=== PATIENT | female | born 1990 | race American Indian/Alaskan Native ===

== ENCOUNTER 2021-05-31 23:47 | Emergency (ER) | payer SELFPAY ==
[2021-06-01 02:21] VITALS: BP 143/80
--- NOTE | 2021-06-01 03:36 | XRay Report ---
RIGHT WRIST ONE VIEW INDICATION / CLINICAL INFORMATION: fell pain. COMPARISON: None available. FINDINGS: BONES / JOINT(S): No acute fracture or subluxation. No significant arthritis. SOFT TISSUES: No significant abnormality. ADDITIONAL FINDINGS: None. Signer Name: Bj Maza MD Signed: 06/01/2021 3:31 AM Workstation Name: [id number]
--- NOTE | 2021-06-01 04:59 | Emergency Department Report ---
ED General Adult HPI - General Chief complaint: Extremity Injury, Upper Stated complaint: WRIST PAIN Time Seen by Provider: 06/01/21 04:39 Source: patient Mode of arrival: Ambulatory Limitations: No Limitations - History of Present Illness Initial comments: 30-year-old [id number] female patient presents to the emergency department complaints of right wrist pain starting 2 days ago. Patient states she was drinking alcohol when she accidentally fell and landed on her outstretched right hand. There was no resulting head injury or loss of cons ciousness. No medications prior to arrival. No history of prior injuries to the right wrist. Denies headache, neck pain, shoulder pain, elbow pain, hand pain, paresthesias, numbness, weakness. Denies all other complaints at this time. - Related Data Allergies Allergy/AdvReac Type Severity Reaction Status Date / Time No Known Allergies Allergy Verified 06/01/21 02:21 ED Review of Systems ROS: Stated complaint: WRIST PAIN Other details as noted in HPI Other: CARDIOVASCULAR: Negative for chest pain. PULMONARY: Negative for dyspnea. GASTROINTESTINAL: Negative for abdominal pain. MUSCULOSKELETAL: Positive for right wrist pain. NEUROLOGICAL: Negative for headache. INTEGUMENTARY: Negative for ecchymosis. ED Past Medical Hx - Past Medical History Previous Medical History?: No - Surgical History Past Surgical History?: No - Social History Smoking Status: Never Smoker Substance Use Type: None ED Physical Exam - General Limitations: No Limitations - Other Other exam information: General: Awake, appropriately interactive, no acute distress. Neck: Supple. Full range of motion intact. Cardiovascular: Normal peripheral perfusion. Pulmonary: No respiratory distress. Patient is speaking normally without use of accessory muscles. Skin: No apparent rashes or lesions. Neurological: No facial asymmetry. Speech is clear. Follows commands. Patient is alert and oriented. Musculoskeletal: Tenderness to palpation along the radial aspect of the right wrist without obvious deformity or dislocation. Full range of motion intact. There is no tenderness along the distribution of the anatomical snuffbox. Distal neurovascular and motor/sensory function intact. Psych: Cooperative. Appropriate mood and affect. ED Course Vital Signs 06/01/21 02:15 Temperature 98.4 F Pulse Rate 91 H Respiratory 18 Rate Blood Pressure 143/80 [Left] O2 Sat by Pulse 95 Oximetry ED Medical Decision Making - Medical Decision Making Differential diagnosis including but not limited to: sprain, strain, fracture, contusion, dislocation On reevaluation, patient remains stable. Repeat neurovascular exam remains intact. X-rays of the wrist without acute process. History and exam findings suggestive of strain/sprain. No clinical indication for further diagnostic work-up on an emergent basis at this time. Patient will be placed in an Marcin wrap and referred to primary care provider for close outpatient follow-up. Patient expressed understanding and is agreeable to plan of care. RICE precautions discussed. Strict return precautions provided. Repeat exam is unremarkable and benign. History, exam, diagnostic testing, and current condition do not suggest worrisome pathology to warrant further testing, continued ED treatment, admission, or surgical evaluation at this point. Given the low probability of a significant medical illness, it would be more likely to result in harm than benefit to perform further testing at this stage. Discussed findings, presumptive diagnosis, need for follow-up and specific signs/symptoms that should prompt immediate return to the emergency department. Instructions were explained in detail to the patient in addition to giving written discharge information. Patient expressed understanding and was given the opportunity to ask questions, all of which were satisfactorily answered prior to discharge home. Critical care attestation.: If time is entered above; I have spent that time in minutes in the direct care of this critically ill patient, excluding procedure time. ED Disposition Clinical Impression: Right wrist sprain Qualifiers: Encounter type: initial encounter Qualified Code(s): S63.501A - Unspecified sprain of right wrist, initial encounter Disposition: HOME / SELF CARE / HOMELESS Is pt being admited?: No Does the pt Need Aspirin: No Condition: Stable Instructions: Wrist Sprain, Adult Additional Instructions: Take Tylenol every 4 hours and Motrin every 8 hours as needed for pain. Wear Marcin wrap as directed. Apply ice to affected area as needed for pain. Keep right wrist elevated as often as possible to reduce swelling. Follow-up with primary care provider this week. Call today to schedule an appointment. Return to the emergency department immediately for new or worsening symptoms. Referrals: DENISA MICHAEL MD [Staff Physician] - 3-5 Days Time of Disposition: 04:58
== END 2021-06-01 06:20 | disposition home or self-care (01) ==
LOC: ED 23:47
DX: S63.591A Other specified sprain of right wrist, initial encounter (principal); W18.39XA Other fall on same level, initial encounter; Y93.89 Activity, other specified; Y92.89 Other specified places as the place of occurrence of the external cause; Y99.8 Other external cause status
CPT/HCPCS: 99283